=== PATIENT | male | born 1990 | race African-American/Black ===

== ENCOUNTER 2017-06-17 17:52 | Emergency (ER) | payer BC, SELFPAY | END 2017-06-17 19:24 | disposition home or self-care (01) | PROVIDERS: Emergency Provider Nurse Practitioner; Visit Provider Nurse Practitioner | DX: J32.0 Chronic maxillary sinusitis (principal); I10 Essential (primary) hypertension; Z79.899 Other long term (current) drug therapy | CPT/HCPCS: 87804; 87880; 99201 ==

== ENCOUNTER → 2017-12-01 14:14 | Outpatient (CLI) | payer BC, SELFPAY ==
--- NOTE | 2017-12-01 14:16 | XR_ITS ---
EXAM: XR thoracic spine 3V HISTORY: ITS.REASON: thoracic back pain Comparison: None FINDINGS: Normal alignment. No fracture or dislocation. No lytic or blastic change. No significant degenerative change. The disc spaces are preserved. IMPRESSION: No acute finding
== END ==
PROVIDERS: PCP Physician Assistant; Visit Provider Physician Assistant
DX: M54.6 Pain in thoracic spine (principal)
CPT/HCPCS: 72072

== ENCOUNTER → 2017-12-13 13:42 | Outpatient (POV) | payer BC, SELFPAY ==
[2017-12-13 14:04] VITALS: BP 140/101; PULSE 84; RESP 20; O2SAT 99
--- NOTE | 2017-12-13 15:24 | HMH.PMCON ---
Assessment and Plan (1) Degenerative disc disease Current visit: Yes Status: Chronic Category: Medical - Assessment and plan all Dx Assessment and Plan for all problems:: We will start with a C5-C6 cervical epidural steroid injection and see if this is beneficial for the patient. Patient and I also briefly discussed potential neurostimulator. Patient has tried and failed physical therapy, anti-inflammatories, medications, trigger point injections. I will follow-up with this patient after his injection and we will work on determining his pain pattern and a potential plan of care. This note was dictated using voice recognition software and may contain errors or omissions HPI - Data of Consult Consult date: 12/13/17 Requesting Physician: Haylie Dave APRN Primary Care Provider: TEA Alvarez Family Provider: Referral Provider, MD - Consult Narrative Reason for consult: neck pain History of present illness: Mr. Robles is a 27 year old male who presents today for consultation in regards to his cervical pain. Patient was a patient in this office back in 2016. Patient received several rounds of trigger point injections. Patient then went to Dr. Lizarraga for consultation. Patient was not a surgical candidate but did get a new MRI showing C5-C6 pathology. Patient then went to pain management in [facility] and receive more trigger point injections according to the patient. He was also put on gabapentin 400 mg 1 p.o. 3 times daily. Patient states that this does not help much. Patient rates his pain a 9 out of 10 today. Patient is interested in more aggressive treatment for his pain. Patient states he has been discharged from the [facility] per his request. CC: Haylie Dave APRN [facility] History I have reviewed the patient's past medical history: Yes Medical History: Reports:: Depression, Hypertension Denies:: Diabetes Mellitus Type 1, Diabetes Mellitus Type 2 Other Surgeries: Yes: No Previous Surgery Amputation: No Fractures: No - *Social History Educational Level: Completed High School Smoking Status: Never smoker Tobacco Type: cigarettes Alcohol Intake: never Alcohol Intake Frequency:: holidays/special occasions only Substance Use Type: denies use Occupational Status: other Housing: house - Psychiatric History Expresses thoughts of harming self/others: None Suicide Plan Description: No Plan Pschychiatric History:: Reports:: Depression *Family Hx:: No significant family history Review of Systems - Review of Systems ROS General: no recent weight change, no fever, no sleep disturbances Respiratory: no cough, no shortness of air, no recurring pulmonary infections Cardiovascular/Peripheral Vascular: No chest pain, No palpitations, no edema, no shortness of breath. Gastrointestinal: no incontinence, normal bowel movements reported Genitourinary: no incontinence Musculoskeletal: Neck pain, left arm pain Psychiatric: normal mood/ affect Neurological: Weakness in left upper extremity at times, [denies balance issues] Meds Home Medications Medication Instructions Recorded Confirmed Type amlodipine 5 mg tablet 5 mg PO DAILY tab 08/19/17 10/24/17 History gabapentin 400 mg capsule 400 mg PO TID 08/19/17 10/24/17 History losartan 100 1 tab PO DAILY tab 08/19/17 10/24/17 History mg-hydrochlorothiazide 12.5 mg tablet Metoprolol Succinate 100 mg PO DAILY 10/14/17 10/24/17 History Tizanidine HCl [Zanaflex] 4 mg PO Q8H 10/14/17 10/24/17 History Allergies Allergy/AdvReac Type Severity Reaction Status Date / Time No Known Allergies Allergy Verified 12/01/17 15:17 Objective Vital signs: Pulse Resp BP Pulse Ox 84 20 140/101 99 12/13/17 14:04 12/13/17 14:04 12/13/17 14:04 12/13/17 14:04 Narrative: Physical Exam General: Alert and oriented x3, no acute distress, pleasant and cooperative, [on room air] Lungs: Re
--- NOTE | 2017-12-13 15:28 | P.CONS_ITS ---
Assessment and Plan (1) Degenerative disc disease Current visit: Yes Status: Chronic Category: Medical - Assessment and plan all Dx Assessment and Plan for all problems:: We will start with a C5-C6 cervical epidural steroid injection and see if this is beneficial for the patient. Patient and I also briefly discussed potential neurostimulator. Patient has tried and failed physical therapy, anti- inflammatories, medications, trigger point injections. I will follow-up with this patient after his injection and we will work on determining his pain pattern and a potential plan of care. This note was dictated using voice recognition software and may contain errors or omissions HPI - Data of Consult Consult date: 12/13/17 Requesting Physician: Haylie Dave APRN Primary Care Provider: TEA Alvarez Family Provider: Referral Provider, MD - Consult Narrative Reason for consult: neck pain History of present illness: Mr. Robles is a 27 year old male who presents today for consultation in regards to his cervical pain. Patient was a patient in this office back in 2016. Patient received several rounds of trigger point injections. Patient then went to Dr. Lizarraga for consultation. Patient was not a surgical candidate but did get a new MRI showing C5-C6 pathology. Patient then went to pain management in [facility] and receive more trigger point injections according to the patient. He was also put on gabapentin 400 mg 1 p.o. 3 times daily. Patient states that this does not help much. Patient rates his pain a 9 out of 10 today. Patient is interested in more aggressive treatment for his pain. Patient states he has been discharged from the [facility] per his request. CC: Haylie Dave APRN [facility] History I have reviewed the patient's past medical history: Yes Medical History: Reports:: Depression, Hypertension Denies:: Diabetes Mellitus Type 1, Diabetes Mellitus Type 2 Other Surgeries: Yes: No Previous Surgery Amputation: No Fractures: No - *Social History Educational Level: Completed High School Smoking Status: Never smoker Tobacco Type: cigarettes Alcohol Intake: never Alcohol Intake Frequency:: holidays/special occasions only Substance Use Type: denies use Occupational Status: other Housing: house - Psychiatric History Expresses thoughts of harming self/others: None Suicide Plan Description: No Plan Pschychiatric History:: Reports:: Depression *Family Hx:: No significant family history Review of Systems - Review of Systems ROS General: no recent weight change, no fever, no sleep disturbances Respiratory: no cough, no shortness of air, no recurring pulmonary infections Cardiovascular/Peripheral Vascular: No chest pain, No palpitations, no edema, no shortness of breath. Gastrointestinal: no incontinence, normal bowel movements reported Genitourinary: no incontinence Musculoskeletal: Neck pain, left arm pain Psychiatric: normal mood/ affect Neurological: Weakness in left upper extremity at times, [denies balance issues] Meds Home Medications Medication Instructions Recorded Confirmed Type amlodipine 5 mg tablet 5 mg PO DAILY tab 08/19/17 10/24/17 History gabapentin 400 mg capsule 400 mg PO TID 08/19/17 10/24/17 History losartan 100 1 tab PO DAILY tab 08/19/17 10/24/17 History mg-hydrochlorothiazide 12.5 mg tablet Metoprolol Succinate 100 mg PO DAILY 10/14/17 10/24/17 History
== END ==
PROVIDERS: PCP Physician Assistant; Visit Provider Clinical Nurse Specialist Family Health
DX: M50.30 Other cervical disc degeneration, unspecified cervical region (principal)
CPT/HCPCS: 99202

== ENCOUNTER 2017-12-24 09:19 | Day surgery (SDC) | payer BC, SELFPAY ==
[2017-12-24 09:31] VITALS: BP 133/93; PULSE 79; RESP 20; TEMP 36.7; O2SAT 97; BMI 27.9
--- NOTE | 2017-12-24 09:43 | HMH.PMPROC ---
- Procedure Date: 12/24/17 Time: 09:43 Anesthesiologist:: Luisito Daley MD Complications:: None Pre-procedure Diagnosis:: Degenerative disc disease of cervical spine with cervical radiculopathy symptoms Post-procedure Diagnosis:: Same Indications for Procedure:: This patient is a pleasant 27-year-old white male who we are treating for neck pain with cervical radicular symptoms. MRI does show C5-C6 pathology. He is not a surgical candidate. Most of his pain is in the neck radiating to the shoulder. We will do a cervical epidural steroid injection today to see if this will help with his pain symptoms. Procedure Details:: Cervical epidural steroid injection under fluoroscopy Informed consent was obtained and the risks and benefits of the procedure was explained to the patient. The patient was taken to the procedure room placed prone on the procedure table. The neck was prepped using ChloraPrep. The skin and subcutaneous tissues were anesthetized using lidocaine. I placed a 18-gauge epidural needle into the C5-C6 interspace and advanced using [id number] to air and fluoroscopic guidance. After confirmation of needle placement in the epidural space with dye, I injected 3 mL's lidocaine 1.5% and Depo-Medrol 80 mg. The patient tolerated the procedure well with no complications. Plan and Disposition:: We will follow-up with him in 2 weeks. We will reevaluate his symptoms. If he did get relief we may proceed with series of cervical epidural steroid injections. If not then we may move to a potential neuro stimulation.
[2017-12-24 09:46] VITALS: BP 140/80
[2017-12-24 09:47] VITALS: BP 142/85; PULSE 72; RESP 18; O2SAT 98
--- NOTE | 2017-12-24 09:49 | P.PCN_ITS ---
- Procedure Date: 12/24/17 Time: 09:43 Anesthesiologist:: Luisito Daley MD Complications:: None Pre-procedure Diagnosis:: Degenerative disc disease of cervical spine with cervical radiculopathy symptoms Post-procedure Diagnosis:: Same Indications for Procedure:: This patient is a pleasant 27-year-old white male who we are treating for neck pain with cervical radicular symptoms. MRI does show C5-C6 pathology. He is not a surgical candidate. Most of his pain is in the neck radiating to the shoulder. We will do a cervical epidural steroid injection today to see if this will help with his pain symptoms. Procedure Details:: Cervical epidural steroid injection under fluoroscopy Informed consent was obtained and the risks and benefits of the procedure was explained to the patient. The patient was taken to the procedure room placed prone on the procedure table. The neck was prepped using ChloraPrep. The skin and subcutaneous tissues were anesthetized using lidocaine. I placed a 18- gauge epidural needle into the C5-C6 interspace and advanced using loss-of- resistance to air and fluoroscopic guidance. After confirmation of needle placement in the epidural space with dye, I injected 3 mL's lidocaine 1.5% and Depo-Medrol 80 mg. The patient tolerated the procedure well with no complications. Plan and Disposition:: We will follow-up with him in 2 weeks. We will reevaluate his symptoms. If he did get relief we may proceed with series of cervical epidural steroid injections. If not then we may move to a potential neuro stimulation.
[2017-12-24 09:53] VITALS: BP 131/89; PULSE 63; RESP 20; TEMP 36.6; O2SAT 99
== END 2017-12-24 09:54 | disposition home or self-care (01) ==
LOC: SC.PAINP 09:20
PROVIDERS: PCP Physician Assistant; Visit Provider Anesthesiology
DX: M50.122 Cervical disc disorder at C5-C6 level with radiculopathy (principal)
CPT/HCPCS: 62321; J1040; Q9966

== ENCOUNTER → 2018-01-17 14:38 | Outpatient (POV) | payer BC, SELFPAY ==
[2018-01-17 14:45] VITALS: BP 149/92; PULSE 96; RESP 18; O2SAT 98; BMI 28.4
--- NOTE | 2018-01-17 15:18 | HMH.PAINSOAP ---
[facility] Pain Management SOAP Note Subjective:: Patient is a pleasant 27-year-old -[place] male who we are treating for neck pain with cervical radicular symptoms. MRI shows C5-C6 pathology. Patient had his first cervical epidural steroid injection and stated it helped him up to 90%. Patient rated his pain a 2 out of 10 after the procedure. Patient is having a return in pain I do believe it would be beneficial to complete a series of cervical epidural steroid injections given the efficacy of her splint. Patient has completed in physical therapy and other stretching therapies with not much relief. Patient is not currently on an anti-inflammatory will start him on meloxicam 7.5 mg 1 p.o. daily. Patient is not on any anticoagulation therapy. ROS General: no recent weight change, no fever, no sleep disturbances Respiratory: no cough, no shortness of air, no recurring pulmonary infections Cardiovascular/Peripheral Vascular: No chest pain, No palpitations, no edema, no shortness of breath. Gastrointestinal: no incontinence, normal bowel movements reported Genitourinary: no incontinence Musculoskeletal: Neck pain, left arm pain Psychiatric: normal mood/ affect Neurological: [denies weakness in extremities], [denies balance issues] Objective:: Physical Exam General: Alert and oriented x3, no acute distress, pleasant and cooperative, [on room air] Lungs: Resps E/U, Symmetrical chest expansion, Eyes: PERRL Musculoskeletal: Flexion and extension of cervical spine somewhat guarded secondary to pain, deep tendon reflexes normal, strength in upper and lower extremities [5/5], normal gait noted Neurological: speech clear, automation/controls manager equal, no gross sensory deficits Assessment:: Cervical degenerative disc disease with cervical radiculopathy Plan:: We will plan a repeat cervical epidural steroid injection for the patient given the efficacy of the last one I believe if we can complete a series of 3 of these that he may get some long-term relief with this. Patient is interested in moving forward with this. We will also call in meloxicam 7.5 mg 1 p.o. daily. I will follow-up with the patient after his set of 2 injections. This note was dictated using voice recognition software and may contain errors or omissions
--- NOTE | 2018-01-17 15:21 | P.CONS_ITS ---
[facility] Pain Management SOAP Note Subjective:: Patient is a pleasant 27-year-old -[place] male who we are treating for neck pain with cervical radicular symptoms. MRI shows C5-C6 pathology. Patient had his first cervical epidural steroid injection and stated it helped him up to 90%. Patient rated his pain a 2 out of 10 after the procedure. Patient is having a return in pain I do believe it would be beneficial to complete a series of cervical epidural steroid injections given the efficacy of her splint. Patient has completed in physical therapy and other stretching therapies with not much relief. Patient is not currently on an anti- inflammatory will start him on meloxicam 7.5 mg 1 p.o. daily. Patient is not on any anticoagulation therapy. ROS General: no recent weight change, no fever, no sleep disturbances Respiratory: no cough, no shortness of air, no recurring pulmonary infections Cardiovascular/Peripheral Vascular: No chest pain, No palpitations, no edema, no shortness of breath. Gastrointestinal: no incontinence, normal bowel movements reported Genitourinary: no incontinence Musculoskeletal: Neck pain, left arm pain Psychiatric: normal mood/ affect Neurological: [denies weakness in extremities], [denies balance issues] Objective:: Physical Exam General: Alert and oriented x3, no acute distress, pleasant and cooperative, [ on room air] Lungs: Resps E/U, Symmetrical chest expansion, Eyes: PERRL Musculoskeletal: Flexion and extension of cervical spine somewhat guarded secondary to pain, deep tendon reflexes normal, strength in upper and lower extremities [5/5], normal gait noted Neurological: speech clear, modeling director equal, no gross sensory deficits Assessment:: Cervical degenerative disc disease with cervical radiculopathy Plan:: We will plan a repeat cervical epidural steroid injection for the patient given the efficacy of the last one I believe if we can complete a series of 3 of these that he may get some long-term relief with this. Patient is interested in moving forward with this. We will also call in meloxicam 7.5 mg 1 p.o. daily. I will follow-up with the patient after his set of 2 injections. This note was dictated using voice recognition software and may contain errors or omissions
== END ==
PROVIDERS: PCP Physician Assistant; Visit Provider Clinical Nurse Specialist Family Health
DX: M54.12 Radiculopathy, cervical region (principal)
CPT/HCPCS: 99212

== ENCOUNTER → 2018-02-14 14:54 | Outpatient (POV) | payer BC, SELFPAY ==
[2018-02-14 14:56] VITALS: BP 174/98; PULSE 92; RESP 18; O2SAT 98; BMI 27.8
--- NOTE | 2018-02-14 15:16 | P.CONS_ITS ---
[facility] Pain Management SOAP Note Subjective:: Patient is a pleasant 27-year-old -Citizen [place] male who we are treating for neck pain. Patient has had a second cervical epidural steroid injection he states he got 3 days relief with his injection. Patient and I discussed getting new MRI due to his last diagnostic imaging being back in 2017. Patient states that he is in favor of this. Patient and I also discussed neuro stimulation. I believe that if his pathology has not changed much that neuro stimulation may be beneficial. ROS General: no recent weight change, no fever, no sleep disturbances Respiratory: no cough, no shortness of air, no recurring pulmonary infections Cardiovascular/Peripheral Vascular: No chest pain, No palpitations, no edema, no shortness of breath. Gastrointestinal: no incontinence, normal bowel movements reported Genitourinary: no incontinence Musculoskeletal: Neck pain Psychiatric: normal mood/ affect Neurological: [denies weakness in extremities], [denies balance issues] Objective:: Physical Exam General: Alert and oriented x3, no acute distress, pleasant and cooperative, [ on room air] Lungs: Resps E/U, Symmetrical chest expansion, Eyes: PERRL Musculoskeletal: Flexion and extension of cervical spine somewhat guarded secondary to pain, deep tendon reflexes normal, strength in upper and lower extremities [5/5], normal gait noted Neurological: speech clear, diesel roller operator equal, no gross sensory deficits Assessment:: Degenerative disc disease of the cervical spine with cervical radiculopathy Plan:: We will start the patient on Lyrica 75 mg 1 p.o. twice daily and determine if it is beneficial for him. Patient's tried and failed gabapentin, amitriptyline , Cymbalta. We will also schedule a cervical MRI for the patient. I will follow-up with him after this. Patient may be a neurostimulator candidate. This note was dictated using voice recognition software and may contain errors or omissions
== END ==
PROVIDERS: PCP Physician Assistant; Visit Provider Clinical Nurse Specialist Family Health
DX: M50.10 Cervical disc disorder with radiculopathy, unspecified cervical region (principal); Z79.899 Other long term (current) drug therapy
CPT/HCPCS: 99213

== ENCOUNTER → 2018-03-15 12:58 | Outpatient (CLI) | payer BC, SELFPAY ==
--- NOTE | 2018-03-15 13:07 | MR_ITS ---
MR cervical spine wo con HISTORY: ITS.REASON: CERVICAL PAIN ORDERING PHYSICIAN: Haylie Dave PATIENT AGE: 27 years Comparison: None TECHNIQUE: Standard multiplanar multiecho sequences are performed without contrast. 3-D MIP and myelographic images are also rendered and reviewed FINDINGS: There is straightening of the cervical lordosis which may be due to patient positioning or muscle spasm. The craniocervical junction has an unremarkable appearance. C2-C3: Unremarkable. C3-C4: Unremarkable. C4-C5: Unremarkable. C5-C6: Unremarkable. C6-C7: Unremarkable. C7-T1:. Unremarkable. The disc spaces are well-preserved. The spinal cord has an unremarkable appearance. No extra-axial masses or canal stenosis. IMPRESSION: 1. Straightening of cervical lordosis which may be due to patient positioning or muscle spasm. 2. Otherwise negative MRI of the cervical spine.
== END ==
PROVIDERS: PCP Physician Assistant; Visit Provider Clinical Nurse Specialist Family Health
DX: M54.2 Cervicalgia (principal)
CPT/HCPCS: 72141; 76376

== ENCOUNTER → 2018-03-21 10:55 | Outpatient (POV) | payer BC, SELFPAY ==
[2018-03-21 11:08] VITALS: BP 133/82; PULSE 61; RESP 18; O2SAT 98; BMI 28.7
--- NOTE | 2018-03-21 11:20 | P.CONS_ITS ---
[facility] Pain Management SOAP Note Subjective:: Patient is a pleasant 27-year-old -[place] male who presents today for follow-up after cervical MRI. Patient's MRI shows unremarkable findings. Patient had been started on Lyrica 75 mg 1 p.o. twice daily and stated that it did help him quite a bit. Patient rates his pain a 4 out of 10 today. Patient also on gabapentin 400 mg 1 p.o. 3 times daily. Will take this over. We will also try him on a compounding cream. Most of his pain is in his neck and thoracic spine. Patient's tried and failed injective therapy along with physical therapy ROS General: no recent weight change, no fever, no sleep disturbances Respiratory: no cough, no shortness of air, no recurring pulmonary infections Cardiovascular/Peripheral Vascular: No chest pain, No palpitations, no edema, no shortness of breath. Gastrointestinal: no incontinence, normal bowel movements reported Genitourinary: no incontinence Musculoskeletal: Neck pain Psychiatric: normal mood/ affect Neurological: [denies weakness in extremities], [denies balance issues] Objective:: Physical Exam General: Alert and oriented x3, no acute distress, pleasant and cooperative, [on room air] Lungs: Resps E/U, Symmetrical chest expansion, Eyes: PERRL Musculoskeletal: Flexion and extension of cervical spine somewhat guarded secondary to pain, deep tendon reflexes normal, strength in upper and lower extremities [5/5], normal gait noted Neurological: speech clear, data software engineer equal, no gross sensory deficits Assessment:: Cervical pain, cervical radiculopathy, myofascial pain, fibromyalgia Plan:: We will call in gabapentin 400 mg 1 p.o. 3 times daily and then try to get prior authorization for Lyrica 75 mg 1 p.o. twice daily. We will also call in a compounding cream for the patient we will see him back in 1 month. Patient may be a candidate for dry needling in the future. This note was dictated using voice recognition software and may contain errors or omissions
== END ==
PROVIDERS: PCP Physician Assistant; Visit Provider Clinical Nurse Specialist Family Health
DX: M50.10 Cervical disc disorder with radiculopathy, unspecified cervical region (principal); M79.1 Myalgia
CPT/HCPCS: 99213

== ENCOUNTER → 2018-04-25 13:49 | Outpatient (POV) | payer BC, SELFPAY ==
[2018-04-25 14:00] VITALS: BP 173/98; PULSE 66; RESP 18; O2SAT 98; BMI 27.8
--- NOTE | 2018-04-25 14:07 | P.CONS_ITS ---
[facility] Pain Management SOAP Note Subjective:: Patient is a pleasant 27-year-old -Citizen Of [place] male who presents today for follow-up. Patient's MRI was unremarkable in regards to cervical spine. Patient had started Lyrica however it was not approved by his insurance. Patient is currently on gabapentin 400 mg 1 p.o. 3 times daily. Patient has tried physical therapy along with injective therapy. He rates his pain a 5 out of 10 today. ROS General: no recent weight change, no fever, no sleep disturbances Respiratory: no cough, no shortness of air, no recurring pulmonary infections Cardiovascular/Peripheral Vascular: No chest pain, No palpitations, no edema, no shortness of breath. Gastrointestinal: no incontinence, normal bowel movements reported Genitourinary: no incontinence Musculoskeletal: Neck pain Psychiatric: normal mood/ affect Neurological: [denies weakness in extremities], [denies balance issues] Objective:: Physical Exam General: Alert and oriented x3, no acute distress, pleasant and cooperative, [on room air] Lungs: Resps E/U, Symmetrical chest expansion, Eyes: PERRL Musculoskeletal: Flexion and extension of cervical spine somewhat guarded secondary to pain, deep tendon reflexes normal, strength in upper and lower extremities [5/5], normal gait noted Neurological: speech clear, front office assistant equal, no gross sensory deficits Assessment:: Cervical pain, cervical radiculopathy, myofascial pain, fibromyalgia Plan:: We will set the patient up for dry needling of the cervical spine. I will follow-up with him in 2-3 weeks reassess his symptoms at that time. Patient may be candidate for neurostimulator. I will follow-up with him. This note was dictated using voice recognition software and may contain errors or omissions
== END ==
PROVIDERS: PCP Physician Assistant; Visit Provider Clinical Nurse Specialist Family Health
DX: M50.10 Cervical disc disorder with radiculopathy, unspecified cervical region (principal); M79.7 Fibromyalgia
CPT/HCPCS: 99213

== ENCOUNTER 2018-05-04 16:14 | Outpatient (RCR) | payer BC, SELFPAY | END 2018-05-04 16:18 | disposition home or self-care (01) | LOC: PT 16:14 | PROVIDERS: Visit Provider Clinical Nurse Specialist Family Health | DX: M54.2 Cervicalgia (principal) | CPT/HCPCS: 97163 ==

== ENCOUNTER → 2018-07-01 18:12 | Outpatient (CLI) | payer BC, SELFPAY ==
[2018-07-01 18:48] LABS: Amphetamine/Metha Screen,Urine Negative ng/mL (<1000); Barbiturates Screen,Urine Negative ng/mL (<200); Benzodiazepines Screen,Urine Negative ng/mL (<200); Cannabinoid Screen,Urine Negative ng/mL (<50); Cocaine Screen,Urine Negative ng/mL (<300); Methadone Screen,Urine Negative ng/mL (<300); Opiate Screen,Urine Negative ng/mL (<300); Phencyclidine Screen,Urine Negative ng/mL (<25)
== END ==
PROVIDERS: Visit Provider Nurse Practitioner Family
DX: Z79.899 Other long term (current) drug therapy (principal)
CPT/HCPCS: 80305